=== PATIENT | female | born 1965 | race African-American/Black ===

== ENCOUNTER 2021-07-25 18:43 | Emergency (ER) | payer MEDICAID ==
[~2021-07-25] VITALS: Ht 162.6 cm; Wt 86.0 kg
[2021-07-25 23:09] VITALS: BP 128/82
== END 2021-07-25 23:10 | disposition home or self-care (01) ==
LOC: ER 18:43
DX: M79.642 Pain in left hand (principal); M19.042 Primary osteoarthritis, left hand; H40.9 Unspecified glaucoma; M19.90 Unspecified osteoarthritis, unspecified site; I10 Essential (primary) hypertension; X58.XXXA Exposure to other specified factors, initial encounter; Y93.89 Activity, other specified; Y92.9 Unspecified place or not applicable
CPT/HCPCS: 29125; 73130; 99283